=== PATIENT | female | born 1950 | race Caucasian/White ===

== ENCOUNTER 2021-05-08 03:20 | Day surgery (SDC) | payer MEDICARE, SELFPAY ==
[2021-04-29 14:00] VITALS: BMI 37.0
--- NOTE | 2021-05-08 11:03 | P.HP_ITS ---
History of Present Illness History of Present Illness Consent: Risks, benefits, and alternatives have been discussed and questions answered. Patient agrees to proceed with procedure. Chief complaint: hx of colon polyps Narrative: Lina Dial is a 70 year old female With a history of colon polyps. Her mother had colon cancer Review of Systems Review of Systems: All systems reviewed & are unremarkable except as noted in HPI and below PMFSH Social History Social History Smoking status: Former smoker Tobacco type: cigarettes Substance use type: does not use Living arrangements: with family Gender identity (if verbalized by the patient): Female Meds Home Medications and Allergies Home Medications Medication Instructions Recorded Confirmed Type alprazolam 0.25 mg PO PRN 04/29/21 05/08/21 History aspirin [Adult Aspirin] 81 mg PO DAILY 04/29/21 05/08/21 History atorvastatin 20 mg PO DAILY 04/29/21 05/08/21 History bupropion HCl 150 mg PO DAILY 04/29/21 05/08/21 History calcitriol 0.25 mcg PO DAILY 04/29/21 05/08/21 History carbidopa-levodopa 25 - 100 tablet PO DAILY 04/29/21 05/08/21 History insulin asp prt-insulin aspart 15 unit SUBCUT BID 04/29/21 05/08/21 History lisinopril 20 mg PO DAILY 04/29/21 05/08/21 History magnesium oxide 400 mg PO DAILY 04/29/21 05/08/21 History pantoprazole 20 mg PO DAILY 04/29/21 05/08/21 History sodium,potassium,mag sulfates 17.5 See Rx Instructions PO .COMPLEX 05/01/21 05/08/21 Rx gram-3.13 gram-1.6 gram oral soln #354 ml Allergies Allergy/AdvReac Type Severity Reaction Status Date / Time No Known Allergies Allergy Verified 05/08/21 11:02 Exam Resp: Auscultation: clear to auscultation bilaterally Cardio: Rate: regular rate Rhythm: regular rhythm GI: GI Palp: Yes Soft to palpation and No Tenderness to palpation present (GI) Assessment and Plan Assessment and plan (1) Colon cancer screening: Code(s): Z12.11 - Encounter for screening for malignant neoplasm of colon Status: Acute Assessment and Plan: Colonoscopy with possible biopsy or polypectomy or cautery or injection of s ubstances.
[2021-05-08 11:06] VITALS: BP 126/67; PULSE 89; RESP 16; TEMP 35.6; O2SAT 98; BMI 36.0
--- NOTE | 2021-05-08 11:13 | WPDANESEPPF ---
Anes - Initial Pre Proc Eval Procedure: Operation Date: 05/08/21 12:00 Proposed Procedures p Screening Colonoscopy - Johnson Sylvester MD Date/Time: 05/08/21 11:13 Surgeon: Johnson Sylvester MD Pre Op Diagnosis: hx of colon polyps Patient Data Age: 70 Gender: F Height: 1.63 m Weight: 95.2 kg Last Vital Signs Temp 96.0 F L 05/08/21 11:06 Pulse 89 05/08/21 11:06 Resp 16 05/08/21 11:06 BP 126/67 05/08/21 11:06 Pulse Ox 98 05/08/21 11:06 Allergies Allergy/AdvReac Type Severity Reaction Status Date / Time No Known Allergies Allergy Verified 05/08/21 11:02 Home Medications Medication Instructions Recorded Confirmed Type alprazolam 0.25 mg PO PRN 04/29/21 05/08/21 History aspirin [Adult Aspirin] 81 mg PO DAILY 04/29/21 05/08/21 History atorvastatin 20 mg PO DAILY 04/29/21 05/08/21 History bupropion HCl 150 mg PO DAILY 04/29/21 05/08/21 History calcitriol 0.25 mcg PO DAILY 04/29/21 05/08/21 History carbidopa-levodopa 25 - 100 tablet PO DAILY 04/29/21 05/08/21 History insulin asp prt-insulin aspart 15 unit SUBCUT BID 04/29/21 05/08/21 History lisinopril 20 mg PO DAILY 04/29/21 05/08/21 History magnesium oxide 400 mg PO DAILY 04/29/21 05/08/21 History pantoprazole 20 mg PO DAILY 04/29/21 05/08/21 History sodium,potassium,mag sulfates 17.5 See Rx Instructions PO .COMPLEX 05/01/21 05/08/21 Rx gram-3.13 gram-1.6 gram oral soln #354 ml Patient hx anesthesia problems: none Family hx anesthesia problems: none PMFSH Social History Social History Smoking status: Former smoker Tobacco type: cigarettes Substance use type: does not use Living arrangements: with family Gender identity (if verbalized by the patient): Female Anes - Eval Final PreProcedure Day of Procedure 05/08/21 11:13 Patient weight: obese Heart: irregular rhythm Lungs: clear to auscultation Airway: Mallampati scale class II Neurological: alert and oriented Last oral intake: >/= 8 hours ASA classification: III Emergent: no Anesthetic plan: proceed Anesthesia type and monitoring: general GIVS and standard monitoring Informed Consent: The patient's anesthetic plan and its attendant risks and benefits were discussed with the patient/family/POA. Questions were solicited and answers provided to the satisfaction of the patient/family/POA.
--- NOTE | 2021-05-08 11:21 | ECG_ITS ---
Measurements Intervals [place] Rate: 76 P: 17 LA: 151 QRS: -16 QRSD: 94 T: 52 QT: 371 QTc: 418 Interpretive Statements SINUS RHYTHM WITH MARKED SINUS ARRHYTHMIA BORDERLINE R WAVE PROGRESSION, ANTERIOR LEADS BASELINE ARTIFACT- V5 BORDERLINE ECG Electronically Signed On 05-08-2021 12:06:40 CDT by Trever Ledesma D.O.
[2021-05-08] MEDS: LACTATED RINGERS 1,000 ML 150 ML IV CONT (11:24)
[2021-05-08 11:36] LABS: Glucose Point of Care 143 mg/dl (65-105)
[2021-05-08 12:12] VITALS: BP 90/46; PULSE 70; RESP 16; O2SAT 98
[2021-05-08 12:22] VITALS: BP 85/39; PULSE 70; RESP 20; O2SAT 98
[2021-05-08 12:32] VITALS: BP 82/42; PULSE 68; RESP 20; O2SAT 98
[2021-05-08 12:42] VITALS: BP 89/53; PULSE 68; RESP 20; O2SAT 98
[2021-05-08 12:42] LABS: Glucose Point of Care 107 mg/dl (65-105)
[2021-05-08 12:52] VITALS: BP 124/58; PULSE 68; RESP 20; O2SAT 98
== END 2021-05-08 13:04 | disposition home or self-care (01) ==
PROVIDERS: PCP Internal Medicine; Visit Provider Internal Medicine Gastroenterology
PROC: 0DJD8ZZ Inspection of Lower Intestinal Tract, Via Natural or Artificial Opening Endoscopic (ICD-10-PCS; CPT 45378; principal; 2021-05-08 12:00)
DX: Z12.11 Encounter for screening for malignant neoplasm of colon (principal); D12.2 Benign neoplasm of ascending colon; K57.30 Diverticulosis of large intestine without perforation or abscess without bleeding; Z80.0 Family history of malignant neoplasm of digestive organs; Z87.891 Personal history of nicotine dependence; Z79.899 Other long term (current) drug therapy
CPT/HCPCS: 45385; 82948; 88305; 93005; J2001; J2704; J7120

== ENCOUNTER 2021-11-03 12:57 | Outpatient (RCR) | payer MEDICARE, SELFPAY ==
[2021-11-03 13:00] VITALS: BMI 37.6
[2021-11-03 13:13] VITALS: BMI 37.6
== END 2021-11-20 15:09 | disposition home or self-care (01) ==
LOC: ANHDMC 12:57
PROVIDERS: PCP Internal Medicine; Visit Provider Internal Medicine
DX: E11.9 Type 2 diabetes mellitus without complications (principal); Z71.3 Dietary counseling and surveillance
CPT/HCPCS: 97802